=== PATIENT | female | born 1985 | race African-American/Black ===

== ENCOUNTER 2019-05-10 17:42 | Emergency (ER) | payer MEDICAID | END 2019-05-10 19:52 | disposition left against medical advice (07) | LOC: ER 17:42 | DX: H92.09 Otalgia, unspecified ear (principal); Z53.21 Procedure and treatment not carried out due to patient leaving prior to being seen by health care provider ==

== ENCOUNTER 2019-07-10 12:22 | Emergency (ER) | payer MEDICAID ==
[~2019-07-10] VITALS: Ht 170.2 cm; Wt 88.5 kg
[2019-07-10 12:57] VITALS: BP 115/74
[2019-07-10 13:12] LABS: Urine Bacteria FEW /hpf (None Seen); Urine Blood Negative /uL (Negative); Urine Mucus FEW (None Seen); Urine Specific Gravity 1.026 (1.001-1.035); Urine WBC 2 /hpf (0 - 5)
== END 2019-07-10 20:05 | disposition left against medical advice (07) ==
LOC: ER 12:22
DX: M54.5 Low back pain (principal); Z53.21 Procedure and treatment not carried out due to patient leaving prior to being seen by health care provider
CPT/HCPCS: 81001; 81025

== ENCOUNTER 2020-06-02 12:47 | Emergency (ER) | payer OTHER, MEDICAID ==
[~2020-06-02] VITALS: Ht 170.2 cm; Wt 99.8 kg
[2020-06-02 13:44] VITALS: BP 117/82
[2020-06-02] MEDS ORDERED: IBUPROFEN 800 MG TAB PO ONE (16:30)
[2020-06-02] MEDS ORDERED: METHOCARBAMOL 500 MG TAB PO ONE (16:30)
== END 2020-06-02 16:53 | disposition home or self-care (01) ==
LOC: ER 12:47
DX: S39.012A Strain of muscle, fascia and tendon of lower back, initial encounter (principal); V49.9XXA Car occupant (driver) (passenger) injured in unspecified traffic accident, initial encounter; Y93.89 Activity, other specified; Y92.89 Other specified places as the place of occurrence of the external cause; Y99.8 Other external cause status
CPT/HCPCS: 72100